=== PATIENT | female | born 1970 | race Caucasian/White ===

== ENCOUNTER 2022-12-15 18:21 | Emergency (ER) | payer OTHER ==
--- OUTSIDE RECORDS SUMMARY | 2022-12-15 18:24 | XMS REPORT | Continuity of Care Document ---
:1970 Author Organization [facility] t Address [address] [facility] [address] [place] [address] Care Team Providers Name Role Phone Misti Ayala Primary Care Physician KB TELLES Attending Clinician Unavailable Therapy, Adc Covid Infusion Attending Clinician Unavailable Kb Telles MD Attending Clinician Margot Fernandez RN Attending Clinician Unavailable Only, Ang Db Test Attending Clinician Unavailable Beatriz Grider MD Attending Clinician BEATRIZ GRIDER Attending Clinician Unavailable Doctor Unassigned, [place] Attending Clinician Unavailable Gloria Love RN Attending Clinician Unavailable Coni Santana Attending Clinician CONI JACKSON Attending Clinician Unavailable HALEY MARTINEZ M.D. Attending Clinician Unavailable ALANNA BRAY NP Attending Clinician Unavailable Payers Payer Name Policy Type Policy Number Effective Date Expiration Date Melly menchaca [employer] [id number] [id number] OUT OF NETWORK 00:00:00 Problems Condition Condition Condition Status Onset Resolution Last Treating Co mments Source Name Details Category Date Date Treatment Clinician Date History of History of Problem Resolve [facility] Complex Complex d [facility] tear of tear of ans medial medial meniscus meniscus of left of left knee as knee as current current injury, injury, initial initial encounter encounter Seasonal Seasonal Problem Active [facility] allergies allergies Phys ici ans Status Status Problem Active [facility] post post Physici medial medial ans meniscus meniscus repair repair Left leg Left leg Problem Active UT swelling swelling Physic i ans Left knee Left knee Problem Active [facility] pain pain Physici ans No known No known Disease Unive rs active active ity of problems problems [facility] Allergies, Adverse Reactions, Alerts Allergy Allergy Status Severity Reaction(s) Onset Inactive Treating Comm ents Source Name Type Date Date Clinician Clindamy Drug Active Itching Univers cherise Allergy 9-10 ity of 00:00: [place] 00 [facility] Levoflox Drug Active Nausea Migraine Univer s acin Allergy and/or 06-25 headache ity of Vomiting 00:00: [place] [facility] Tramadol Drug Active Itching Univers Allergy 9-10 ity of 00:00: [place] 00 [facility] Branch CLINDAMY DRUG Active High Hives Univers CHERISE INGREDI 9-10 ity of 00:00: [place] [facility] LEVOFLOX DRUG Active High N/V Univers ACIN INGREDI 9-10 ity of 00:00: [address] TRAMADOL DRUG Active High Hives Univers INGREDI 9-10 ity of 00:00: [address] clindamy Allergy Active [facility] cherise to drug Physici (finding ans ) Levaquin Allergy Active [facility] to drug Physici (finding ans ) tramadol Allergy Active [facility] to drug Physici (finding ans ) Social History Social Habit Start Date Stop Date Quantity Comments Source Exposure to Not sure [facility] SARS-CoV-2 (event) Medica [facility] [place] Tobacco use and 2021-06-20 2021-06-20 Never used [facility] exposure 00:00:00 00:00:00 [facility] Sex Ass[birth year] [facility] 00:00:00 00:00:00 [facility] Smoking Status Start Date Stop Date Source Never smoker [facility] Medications Ordered Filled Start Stop Current Ordering Indication Dosage Frequency Signature Comments Components Source Medication Medication Date Date Medication? Clinician (SIG) Name Name casirivimab 2020- No 1200mg 1,200 mg, Univers -imdevimab 07-10 Subcutaneo it y of (REGEN-COV 16:45: 04:44 [place], ONCE, [place] (EUA[place] 00 :00 1 dose, On Medical injection [facility] 1,200 mg 07/10/21 at 1145, Routine casirivimab 2020- No [id number] 1200mg 1,200 mg, Univers -imdevimab 07-10 Subcutaneo it y of (REGEN-COV 16:00: 14:48 [place], ONCE, [place] (EUA[place] 00 :00 1 dose, On Medical injection Sat Branch 1,200 mg 07/10/21 at 1100, Routine esomeprazol Yes Univer s e (NEXIUM) 9- ity of 20 mg 15:37: [address] levocetiriz Yes Univer s ine (XYZAL) 9-05 ity of 5 mg tablet 15:37: [address] topiramate Yes Univers (TOPAMAX) 9-05 ity of 50 mg 15:37: [place] tablet [address] [place] [address] esomeprazol Yes Univer s e (NEXIUM) 9-05 ity of 20 mg 15:37: [address] levocetiriz Yes Univer s ine (XYZAL) 9-05 ity of 5 mg tablet 15:37: [address] topiramate Yes Univers (TOPAMAX) 9-05 ity of 50 mg 15:37: [place] tablet [address] [place] [address] esomeprazol Yes Univer s e (NEXIUM) 9-05 ity of 20 mg 15:37: [address] levocetiriz Yes Univer s ine (XYZAL) 9-05 ity of 5 mg tablet 15:37: [address] topiramate Yes Univers (TOPAMAX) -05 ity of 50 mg 15:37: [address] azelastine Yes [id number] 1{spray Use 1 Univers 137 mcg 9-05 } [place] in ity of (0.1 %) 00:00: each [place] nasal spray 00 nostril 2 Med ical (two) Branch times daily. Use in each nostril as directed fluticasone Yes [id number] 1{spray Use 1 Univers propionate 9-05 } [place] in ity o f 50 00:00: each [place] mcg/actuati 00 nostril Medic al on nasal daily. Branch spray bromphenira 0 Yes [id number] 5mL Take 5 mL Univers mine-pseudo 9-05 by mouth 4 it y of ephedrine-D 00:00: (four[place] (BROMFED 00 times Medical DM) 2-30-10 daily as Bran ch mg/5 mL needed for syrup Congestion /Allergies . benzonatate 2020-0 Yes [id number] 200mg Take 2 Univers 100 mg 9-05 capsules [place] of capsule 00:00: [place] mouth 2 [place] (two) Medical times Branch daily as needed for Cough. azelastine 2020-0 Yes [id number] 1{spray Use 1 Univers 137 mcg 9-05 } [place] in ity of (0.1 %) 00:00: each [place] nasal spray 00 nostril 2 Med ical (two) Branch times daily. Use in each nostril as directed fluticasone 2020-0 Yes [id number] 1{spray Use 1 Univers propionate 9-05 } [place] in ity o f 50 00:00: each [place] mcg/actuati 00 nostril Medic al on nasal daily. Branch spray bromphenira 0 Yes [id number] 5mL Take 5 mL Univers mine-pseudo 9-05 by mouth 4 it y of ephedrine-D 00:00: (four[place] (BROMFED 00 times Medical DM) 2-30-10 daily as Bran ch mg/5 mL needed for syrup Congestion /Allergies . benzonatate 0 Yes [id number] 200mg Take 2 Univers 100 mg 9-05 capsules ity of capsule 00:00: [place] mouth 2 [place] (two) Medical times Branch daily as needed for Cough. azelastine 2020-0 Yes [id number] 1{spray Use 1 Univers 137 mcg 9-05 } [place] in ity of (0.1 %) 00:00: each [place] nasal spray 00 nostril 2 Med ical (two) Branch times daily. Use in each nostril as directed fluticasone 2020-0 Yes [id number] 1{spray Use 1 Univers propionate 9-05 } [place] in ity o f 50 00:00: each [place] mcg/actuati 00 nostril Medic al on nasal daily. Branch spray bromphenira 2021-0 Yes [id number] 5mL Take 5 mL Univers mine-pseudo 9-05 by mouth 4 it y of ephedrine-D 00:00: (four[place] (BROMFED 00 times Medical DM) 2-30-10 daily as Bran ch mg/5 mL needed for syrup Congestion /Allergies . benzonatate Yes [id number] 200mg Take 2 Univers 100 mg 9-05 capsules ity of capsule 00:00: [place] mouth 2 [place] 00 (two) Medical times Branch daily as needed for Cough. DULoxetine Yes Univers 20 mg 8-24 ity of capsule 00:00: Medical Branch indapamide Yes Univers 2.5 mg 8-24 ity of tablet 00:00: Medical Branch TRESIBA Yes Univers FLEXTOUCH 8-24 ity of U-100 100 00:00: [place] unit/mL (3 00 Medical mL) InPn Branch metformin Yes Univers ER 500 mg 8-24 ity of 24 hr 00:00: [place] tablet 00 Medical Branch montelukast Yes Univer s 10 mg 8-24 ity of tablet 00:00: Medical Branch DULoxetine Yes Univers 20 mg 8-24 ity of capsule 00:00: Medical Branch indapamide Yes Univers 2.5 mg 8-24 ity of tablet 00:00: Medical Branch TRESIBA Yes Univers FLEXTOUCH 8-24 ity of U-100 100 00:00: [place] unit/mL (3 00 Medical mL) InPn Branch metformin 0 Yes Univers ER 500 mg 8-24 ity of 24 hr 00:00: [place] tablet 00 Medical Branch montelukast Yes Univer s 10 mg 8-24 ity of tablet 00:00: Medical Branch DULoxetine Yes Univers 20 mg 8-24 ity of capsule 00:00: Medical Branch indapamide 0 Yes Univers 2.5 mg 8-24 ity of tablet 00:00: Medical Branch TRESIBA 0 Yes Univers FLEXTOUCH 8-24 ity of U-100 100 00:00: [place] unit/mL (3 00 Medical mL) InPn Branch metformin Yes Univers ER 500 mg 8-24 ity of 24 hr 00:00: [place] tablet 00 Medical Branch montelukast Yes Univer s 10 mg 8-24 ity of tablet 00:00: [place] 00 Medical Branch SYMBICORT Yes Univers 160-4.5 7-10 ity of mcg/actuati 00:00: [place] on inhaler Medical Branch SYMBICORT Yes Univers 160-4.5 7-10 ity of mcg/actuati 00:00: [place] on inhaler Medical Branch SYMBICORT Yes Univers 160-4.5 7-10 ity of mcg/actuati 00:00: [place] on inhaler Medical Branch albuterol Yes Univers 90 7-07 ity of mcg/actuati 00:00: [place] on inhaler Medical Branch albuterol Yes Univers 90 7-07 ity of mcg/actuati 00:00: [place] on inhaler Medical Branch albuterol Yes Univers 90 7-07 ity of mcg/actuati 00:00: [place] on inhaler 00 Medical Branch Diclofenac Diclofenac 2018-10 Yes HALEY APPLY 2 UT Sodium 1 % Sodium 1 % 2- MARTINEZ M.D. GRAMS TO Physici Transdermal Transdermal 00:00: AFFECTED ans Gel Gel 00 AREA FOUR TIMES A DAY NEEDED Acetaminoph Acetaminoph Yes HALEY QD TAKE 1 UT en-Codeine en-Codeine 8-12 MARTINEZ M.D. TABLET Physici #3 300-30 #3 300-30 00:00: DAILY ans MG Oral MG Oral 00 NEEDED FOR Tablet Tablet PAIN. Naproxen Naproxen Yes HALEY Q0.5D TAKE 1 UT 500 MG Oral 500 MG Oral 7- MARTINEZ M.D. TABLET Physici Tablet Tablet 00:00: TWICE ans 00 DAILY NEEDED. Evan Gordon Yes UT 2.5-500 MG 2.5-500 MG Phy sici Oral Tablet Oral Tablet a ns Xyzal TABS Xyzal TABS Yes UT Physici ans Montelukast Montelukast Yes U T Sodium 10 Sodium 10 Physi ci MG Oral MG Oral ans Tablet Tablet NexIUM CPDR NexIUM CPDR Yes U T Physici ans Topamax Topamax Yes UT TABS TABS Physici ans ALPRAZolam ALPRAZolam Yes UT 0.25 MG 0.25 MG Physici Oral Tablet Oral Tablet a ns Vital Signs Vital Name Observation Time Observation Value Comments Source Systolic blood 2021-07-10 15:33:00 142 mm[Hg] Univer sity [facility] Diastolic blood 2021-07-10 15:33:00 90 mm[Hg] [facility] Heart rate 2021-07-10 15:33:00 88 /min [facility] Body temperature 2021-07-10 15:33:00 36.5 Celeste [facility] Res[facility] rate 2021-07-10 15:33:00 20 /min [facility] Body height 2021-07-10 15:33:00 154.9 cm [facility] Body weight 2021-07-10 15:33:00 122.018 kg [facility] BMI 2021-07-10 15:33:00 50.83 kg/m2 [facility] Oxygen saturation in 2021-07-10 15:33:00 96 /min [facility] Arterial blood by [facility] Pulse oximetry Branch Procedures Procedure Date / Time Performed Performing Clinician Giulia e MR Knee wo contrast [id number] 2019-09-16 00:00:00 [facility] US Extremity lower venous 2019-05-08 00:00:00 [facility] Doppler Unilat [id number] Post Op Promis 29 Survey 2019-04-12 00:00:00 [facility] [[facility]] Ortho - Surgery 2019-02-27 00:00:00 [facility] Venancio sicians Scheduling History of Knee Surgery [facility] Plan of Care Planned Activity Planned Date Details Comments Source Diagnostic Test 2019-02-27 00:00:00 [[facility]] Ortho - Surgery [facility] Pending Scheduling [code = [UT[facility]] Ortho - Surgery Scheduling] Encounters Start End Encounter Admission Attending Care Care Encounter Source Date/Time Date/Time Type Type Clinicians Facility Department ID 2021-07-10 2021-07-10 Outpatient Shayla TELLES [facility] [id number] Univers 10:00:00 10:00:00 KB gimenez [facility] 2021-07-10 2021-07-10 Nurse Therapy, Adc Covid Infusion [facility] [id number] Univers 07:41:25 08:41:25 Visit Kb Telles [id number] ity of [id number] [phone] [place] [id number] Branch 2021-07-06 2021-07-06 Letter ALEXANDRE Fernandez [id number] Univers 00:00:00 00:00:00 (Out) Margot ABBOTT [id number] i ty of HOSPITAL [id number] Darius as [id number] [facility] 019 [place] 2021-07-05 2021-07-05 Laboratory Only, Ang Db Test [facility] 1.2.8 40.114 [id number] Univers 14:28:17 14:34:10 Only Beatriz Grider [facility] [id number] ity of [place] [id number] Darius as Vincent?Blea [phone] [address] Medical Office Building 2021-07-05 2021-07-05 Outpatient R NANY [facility] [id number] Univers 14:30:00 14:30:00 BEATRIZ gimenez [facility] 2021-07-05 2021-07-05 Orders Doctor SCHROEDER [id number] Univers 00:00:00 00:00:00 Only Unassigned, SCAR [id number] ity of [place] [facility] [id number] Darius as [phone] [facility] 009 [place] 2021-06-21 2021-06-21 Telephone ALEXANDRE Love [id number] Univers 00:00:00 00:00:00 Gloria ABBOTT [id number] i ty of HOSPITAL [id number] Darius as [id number] [facility] 019 [place] 2021-06-20 2021-06-20 Urgent Beatriz Grider [facility] [id number] Univers 15:12:19 16:06:42 Care Jimmie, Coni [facility] [id number] [place] [id number] Darius as Vincent?Blea [phone] [facility] [address] Medical Office Building 2021-06-20 2021-06-20 Outpatient R JIMMIE [facility] [id number] Univers 15:40:00 15:40:00 CONI gimenez o f [facility] 2019-09-16 2019-09-16 JESSENIA [facility] [id number] [place] 13:15:00 13:15:00 t; HALEY MARTINEZ - [facility] [place] 1 ans M.D. 2019-07-15 2019-07-15 JESSENIA [facility] [id number] [place] 16:00:00 16:00:00 t; HALEY MARTINEZ - [facility] [place] 1 ans M.D. 2019-06-14 2019-06-14 JESSENIA [facility] [id number] [place] 13:45:00 13:45:00 t; HALEY MARTINEZ - [facility] [place] 1 ans M.D. 2019-05-27 2019-05-27 JESSENIA [facility] [id number] [place] 13:00:00 13:00:00 t; WAI MONDRAGON - [facility] Wilda Sims 1 ans WAI MONDRAGON 2019-04-22 2019-04-22 Ninfa MARTINEZ [facility] Orthopedics [id number] [place] 14:15:00 14:15:00 t; HALEY MARTINEZ - [facility] [place] 1 ans M.D. 2019-04-04 2019-04-04 JESSENIA [facility] [id number] [place] 07:30:00 07:30:00 t; HALEY MARTINEZ - [facility] [place] 1 ans M.D. 2019-04-04 2019-04-04 Outpatient [facility] [id number] [facility] 06:20:00 06:20:00 2019-02-04 2019-02-04 Ninfa MARTINEZ [facility] [id number] [place] 15:30:00 15:30:00 t; HALEY MARTINEZ, Orthopedic P zenobia DE LEON M.D. Surgery - [facility] Mat [place]ora Trace 1 Results Test Description Test Time Test Comments Results Result Comments Source Post Op Promis 29 Survey 2019-06-10 09:36:01 Test Item Value Reference Range Interpretation Comme nts Pain Interference: (test code = Pain Interference:) 62.7 1 N Pain Intensity: (test code = Pain Intensity:) 43.8 1 N Physical Function: (test code = Physical Function:) 24.5 1 N Satisfaction Role: (test code = Satisfaction Role:) 31.1 1 N [facility]
--- NOTE | 2022-12-15 19:50 | ER ---
Nurse's Notes [facility] Name: Agnieszka Welsh Age: 52 yrs Sex: Female : 1970 Arrival Date: 12/15/2022 Time: 18:24 Bed IW10 Private MD: Diagnosis: Idiopathic urticaria Presentation: 12/15 19:41 Chief complaint: Patient states: "I am breaking out in a rash and don't know why". vc1 Ebola Screen: Patient negative for fever greater than or equal to 101.5 degrees Fahrenheit, and additional compatible Ebola Virus Disease symptoms Patient denies exposure to infectious person. Patient denies travel to an Ebola-affected area in the 21 days before illness onset. No symptoms or risks identified at this time. Onset: The symptoms/episode began/occurred gradually. Anaphylaxis evaluation, no signs or symptoms of anaphylaxis were noted. Initial Sepsis Screen: Does the patient meet any 2 criteria? No. Patient's initial sepsis screen is negative. Does the patient have a suspected source of infection? No. Patient's initial sepsis screen is negative. Risk Assessment: Do you want to hurt yourself or someone else? Patient reports no desire to harm self or others. Onset of symptoms is unknown. 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 - Social history:: Smoking status: Patient reports the use of cigarette tobacco products, smokes one-half pack cigarettes per day. - Family history:: not pertinent. Vital Signs: 19:41 Pulse 93; Resp 17; Temp 98.3; Pulse Ox 98% ; vc1 19:44 BP 135 / 104; vc1 19:47 Weight 129.27 kg; Height 5 ft. 1 in. (154.94 cm); vc1 19:47 Body Mass Index 53.85 (129.27 kg, 154.94 cm) vc1 ED Course: 18:24 Patient arrived in ED. mr 19:30 Aleksey Bonilla MD is Attending Physician. rt 19:43 Triage completed. vc1 19:44 Arm band placed on left wrist. vc1 Administered Medications: 19:50 Drug: predniSONE 20 mg Route: PO; vc1 19:50 Drug: Pepcid (famotidine) 20 mg Route: PO; vc1 Outcome: 19:50 Discharge ordered by MD. rt 19:53 Discharged to home vc1 19:53 Condition: good 19:53 Discharge instructions given to patient, Instructed on discharge instructions, follow up and referral plans. medication usage, Demonstrated understanding of instructions, follow-up care, medications. 19:53 Demonstrated understanding of Prescriptions given X 2. 19:54 Patient left the ED. vc1 Signatures: Tawnya Farley mr Ila Miguel RN RN vc1 Aleksey Bonilla MD MD rt
--- NOTE | 2022-12-15 19:50 | EDPHYS ---
Physician Documentation [facility] Name: Agnieszka Welsh Age: 52 yrs Sex: Female : 1970 Arrival Date: 12/15/2022 Time: 18:24 Bed IW10 Private MD: ED Physician Aleksey Bonilla HPI: 12/15 21:26 This 52 yrs old Female presents to ER via Ambulatory with complaints of Allergic rt Reaction, Itching. 21:26 Patient presents to the ED with hives starting this afternoon. Patient states that she rt has been itching, using Benadryl to no relief. She has had similar symptoms previously. Denies tongue, lip swelling. She states involves her ears, chest, face, arms. She denies fever, chills, acute complaints. Symptoms are moderate severity, no other aggravating elevating factors.. 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 - Social history:: Smoking status: Patient reports the use of cigarette tobacco products, smokes one-half pack cigarettes per day. - Family history:: not pertinent. ROS: 21:26 Constitutional: Negative for fever, chills, and weight loss, Cardiovascular: Negative rt for chest pain, palpitations, and edema, Respiratory: Negative for shortness of breath, cough, wheezing, and pleuritic chest pain, Abdomen/GI: Negative for abdominal pain, nausea, vomiting, diarrhea, and constipation, Neuro: Negative for headache, weakness, numbness, tingling, and seizure, Psych: Negative for depression, anxiety, suicide ideation, homicidal ideation, and hallucinations. 21:26 Skin: Positive for Hives, itching. Exam: 21:26 Constitutional: This is a well developed, well nourished patient who is awake, alert, rt and in no acute distress. Head/Face: Normocephalic, atraumatic. Chest/axilla: Normal chest wall appearance and motion. Nontender with no deformity. No lesions are appreciated. Cardiovascular: Regular rate and rhythm with a normal S1 and S2. No gallops, murmurs, or rubs. Normal PMI, no JVD. No pulse deficits. Respiratory: Lungs have equal breath sounds bilaterally, clear to auscultation and percussion. No rales, rhonchi or wheezes noted. No increased work of breathing, no retractions or nasal flaring. Abdomen/GI: Soft, non-tender, with normal bowel sounds. No distension or tympany. No guarding or rebound. No evidence of tenderness throughout. 21:26 Skin: Diffuse urticarial rash noted, no cellulitis, no abscess. Vital Signs: 19:41 Pulse 93; Resp 17; Temp 98.3; Pulse Ox 98% ; vc1 19:44 BP 135 / 104; vc1 19:47 Weight 129.27 kg; Height 5 ft. 1 in. (154.94 cm); vc1 19:47 Body Mass Index 53.85 (129.27 kg, 154.94 cm) vc1 MDM: 19:47 Patient medically screened. rt 21:26 Differential diagnosis: SJS, anaphylaxis, hives. Data reviewed: vital signs, nurses rt notes. I considered the following discharge prescriptions or medication management in the emergency department Medications were administered in the Emergency Department. See MAR. Counseling: I had a detailed discussion with the patient and/or guardian regarding: the historical points, exam findings, and any diagnostic results supporting the discharge/admit diagnosis, the need for outpatient follow up, to return to the emergency department if symptoms worsen or persist or if there are any questions or concerns that arise at home. Administered Medications: 19:50 Drug: predniSONE 20 mg Route: PO; vc1 19:50 Drug: Pepcid (famotidine) 20 mg Route: PO; vc1 Disposition Summary: 12/15/22 19:50 Discharge Ordered Location: Home rt Problem: an acute exacerbation rt Symptoms: are unchanged rt Condition: Stable rt Diagnosis - Idiopathic urticaria rt Followup: rt - With: Private Physician - When: 2 - 3 days - Reason: Discharge Instructions: - Discharge Summary Sheet rt - Hives rt Forms: - Medication Reconciliation Form rt - Thank You Letter rt - Antibiotic Education rt - Prescription Opioid Use rt Prescriptions: - EpiPen 2-Tay - inject 1 Syringe by SUBCUTANEOUS route one time; 2 Syringe; Refills: 0, Product rt Selection Permitted - Prednisone 20 mg Oral Tablet - take 1 tablet by ORAL route once daily for 4 days; 4 tablet; Refills: 0, rt Product Selection Permitted Signatures: Ila Miguel RN RN vc1 Aleksey Bonilla MD MD rt
[2022-12-15] MEDS ORDERED: predniSONE 20 MG TAB ONE (19:53)
[2022-12-15] MEDS ORDERED: FAMOTIDINE 20 MG TAB ONE (19:53)
[2022-12-15 20:23] VITALS: TEMP 98.3; O2SAT 98
[2022-12-15 20:32] VITALS: BP 135/104
== END 2022-12-15 19:54 | disposition home or self-care (01) ==
LOC: ER 18:21
DX: L50.1 Idiopathic urticaria (principal); F17.210 Nicotine dependence, cigarettes, uncomplicated; Z88.1 Allergy status to other antibiotic agents
CPT/HCPCS: 99283; J7512

== ENCOUNTER 2024-04-12 01:24 | Emergency (ER) | payer OTHER ==
--- OUTSIDE RECORDS SUMMARY | 2024-04-12 01:27 | XMS REPORT | Continuity of Care Document ---
Author Name Unknown Address [address] [facility] [address] [place] [address] [facility] thconnect Address [address] [facility] [address] [place] [address] Care Team Providers Care Publication Specialist Name Role Phone Misti Ayala Primary Care Physician [phone] KB TELLES Attending Clinician Unavailable Therapy, Adc Covid Infusion Attending Clinician Unavailable Kb Telles MD Attending Clinician [phone] Jim SERNA, Margot Mia Attending Clinician Unavailab No, Ang Db Test Attending Clinician UnavailBeatriz Pat MD Attending Clinician [phone] BEATRIZ GRIDER Attending Clinician Unavailable Doctor Unassigned, [place] Attending Clinician U rios Love RN, Gloria Brock Attending Clinician Unavaila Coni Avendano Attending Clinician [phone] CONI JACKSON Attending Clinician UnavailHALEY Terry M.D. Attending Clinician Unavaila ble ALANNA BRAY NP Attending Clinician Unavaila ble Payers Payer Name Policy Type Policy Number Effective Date Expirati on Date Source [employer] [id number] [id number] 00:00:00 Problems Condition Name Condition Details Condition Category Status Onset Date Resolution Date Last Treatment Date Treating Clinician Comments Source No known active problems No known active problems Disease [facility] History of Complex tear of medial meniscus of left knee as current injury, initial encounter History of Complex tear of medial meniscus of left knee as current injury, initial encounter Problem Resolve d [facility] Seasonal allergies Seasonal allergies Problem Active [facility] Status post medial meniscus repair Status post medial meniscus repair Problem Active [facility] Left leg swelling Left leg swelling Problem Active [facility] Left knee pain Left knee pain Problem Active [facility] Allergies, Adverse Reactions, Alerts Allergy Name Allergy Type Status Severity Reaction(s) Onset Date Inactive Date Treating Clinician Comments Source Clindamy cherise Drug Allergy Active Itching 06-25 00:00: 00 [facility] Levoflox acin Drug Allergy Active Nausea and/or Vomiting 06-25 00:00: 00 Migraine headache [facility] Tramadol Drug Allergy Active Itching 06-25 00:00: 00 [facility] CLINDAMY CHERISE DRUG INGREDI Active High Hives 06-25 00:00: 00 [facility] LEVOFLOX ACIN DRUG INGREDI Active High N/V 06-25 00:00: 00 [facility] TRAMADOL DRUG INGREDI Active High Hives 06-25 00:00: 00 [facility] clindamy cherise Allergy to drug (finding ) Active [facility] Levaquin Allergy to drug (finding ) Active [facility] tramadol Allergy to drug (finding ) Active [facility] Social History Social Habit Start Date Stop Date Quantity Comments Source Exposure to SARS-CoV-2 (event) Not sure [facility] Tobacco use and exposure 2021-06-20 00:00:00 2021-06-20 00:00:00 Never used [facility] Sex Assigned At 1970 00:00:00 1970 00:00:00 [facility] Smoking Status Start Date Stop Date Source Never smoker [facility] Medications Ordered Medication Name Filled Medication Name Start Date Stop Date Current Medication? Ordering Clinician Indication Dosage Frequency Signature (SIG) Comments Components Source casirivimab -imdevimab (REGEN-COV (EUA)) injection 1,200 mg 07-10 16:45: 00 07-11 04:44 :00 No 1200mg 1,200 mg, Subcutaneo us, ONCE, 1 dose, On 07/10/21 at 1145, Routine [facility] casirivimab -imdevimab (REGEN-COV (EUA)) injection 1,200 mg 07-10 16:00: 00 07-10 14:48 :00 No [id number] 1200mg 1,200 mg, Subcutaneo us, ONCE, 1 dose, On 07/10/21 at 1100, Routine [facility] esomeprazol e (NEXIUM) 20 mg capsule 06-20 15:37: 33 Yes [facility] levocetiriz ine (XYZAL) 5 mg tablet 06-20 15:37: 33 Yes [facility] topiramate (TOPAMAX) 50 mg tablet 06-20 15:37: 33 Yes [facility] benzonatate 100 mg capsule 06-20 00:00: 00 Yes [id number] 200mg Take 2 capsules by mouth 2 (two) times daily as needed for Cough. [facility] azelastine 137 mcg (0.1 %) nasal spray 06-20 00:00: 00 Yes [id number] 1{spray } Use 1 [place] in each nostril 2 (two) times daily. Use in each nostril as directed [facility] fluticasone propionate 50 mcg/actuati on nasal spray 06-20 00:00: 00 Yes [id number] 1{spray } Use 1 [place] in each nostril daily. [facility] bromphenira mine-pseudo ephedrine-D M (BROMFED DM) 2-30-10 mg/5 mL syrup 06-20 00:00: 00 Yes [id number] 5mL Take 5 mL by mouth 4 (four) times daily as needed for Congestion /Allergies . [facility] DULoxetine 20 mg capsule 06-08 00:00: 00 Yes [facility] indapamide 2.5 mg tablet 06-08 00:00: 00 Yes [facility] TRESIBA FLEXTOUCH U-100 100 unit/mL (3 mL) InPn 06-08 00:00: [address] [facility] metformin ER 500 mg 24 hr tablet 06-08 00:00: [address] [facility] montelukast 10 mg tablet 06-08 00:00: [address] [facility] SYMBICORT 160-4.5 mcg/actuati on inhaler 04-24 00:00: 00 Yes [facility] albuterol 90 mcg/actuati on inhaler 04-21 00:00: 00 Yes [facility] Diclofenac Sodium 1 % Transdermal Gel Diclofenac Sodium 1 % Transdermal Gel 2018-10 00:00: 00 Yes HALEY MARTINEZ M.D. APPLY 2 GRAMS TO AFFECTED AREA FOUR TIMES A DAY NEEDED [facility] Acetaminoph en-Codeine #3 300-30 MG Oral Tablet Acetaminoph en-Codeine #3 300-30 MG Oral Tablet 05-27 00:00: 00 Yes HALEY MARTINEZ M.D. QD TAKE 1 TABLET DAILY NEEDED FOR PAIN. [facility] Naproxen 500 MG Oral Tablet Naproxen 500 MG Oral Tablet 04-16 00:00: 00 Yes HALEY MARTINEZ M.D. Q0.5D TAKE 1 TABLET TWICE DAILY NEEDED. [facility] Jentadueto 2.5-500 MG Oral Tablet Jentadueto 2.5-500 MG Oral Tablet Yes [facility] Xyzal TABS Xyzal TABS Yes [facility] NexIUM CPDR NexIUM CPDR Yes [facility] Topamax TABS Topamax TABS Yes [facility] ALPRAZolam 0.25 MG Oral Tablet ALPRAZolam 0.25 MG Oral Tablet Yes [facility] Vital Signs Vital Name Observation Time Observation Value Comments S nikolai Systolic blood pressure 2021-07-10 15:33:00 142 mm[Hg] [facility] Diastolic blood pressure 2021-07-10 15:33:00 90 mm[Hg] [facility] Heart rate 2021-07-10 15:33:00 88 /min [facility] Body temperature 2021-07-10 15:33:00 36.5 Celeste [facility] Respiratory rate 2021-07-10 15:33:00 20 /min [facility] Body height 2021-07-10 15:33:00 154.9 cm [facility] Body weight 2021-07-10 15:33:00 122.018 kg [facility] BMI 2021-07-10 15:33:00 50.83 kg/m2 [facility] Oxygen saturation in Arterial blood by Pulse oximetry 2021-07-10 15:33:00 96 /min [place] [facility] Procedures Procedure Date / Time Performed Performing Clinicia n Source MR Knee wo contrast [id number] 2019-09-16 00:00:00 [facility] US Extremity lower venous Doppler Unilat [id number] 2019-05-08 00:00:00 [facility] Post Op Promis 29 Survey 2019-04-12 00:00:00 [facility] [[facility]] Ortho - Surgery Scheduling 2019-02-27 00:00:00 [facility] History of Knee Surgery [facility] Plan of Care Planned Activity Planned Date Details Comments Source Diagnostic Test Pending 2019-02-27 00:00:00 [[facility]] Ortho - Surgery Scheduling [code = [[facility]] Ortho - Surgery Scheduling] [facility] Encounters Start Date/Time End Date/Time Encounter Type Admission Type Attending Clinicians Care Facility Care Department Encounter ID Source 2021-07-10 10:00:00 2021-07-10 10:00:00 Outpatient KB [facility] [id number] [facility] 2021-07-10 07:41:25 2021-07-10 08:41:25 Nurse Visit Therapy, Adc Covid Infusion Kb Telles [facility] 1..114 [id number] [facility] 2021-07-06 00:00:00 2021-07-06 00:00:00 Letter (Out) Margot Fernandez [facility] 1.840.114 [id number] [id number] [facility] 2021-07-05 14:28:17 2021-07-05 14:34:10 Laboratory Only Only, Ang Db Test [facility] [id number] [facility] 2021-07-05 14:30:00 2021-07-05 14:30:00 Outpatient R BEATRIZ GRIDER [facility] [id number] [facility] 2021-07-05 00:00:00 2021-07-05 00:00:00 Orders Only Doctor Unassigned, [place] [facility] [id number] [id number] [facility] 2021-06-21 00:00:00 2021-06-21 00:00:00 Telephone Gloria Love [facility] [id number] [facility] 2021-06-20 15:12:19 2021-06-20 16:06:42 Urgent Care Beatriz Grider [facility] [id number] [facility] 2021-06-20 15:40:00 2021-06-20 15:40:00 Outpatient R CONI JACKSON [facility] [id number] [facility] 2019-09-16 13:15:00 2019-09-16 13:15:00 Appointreece t; HALEY MARTINEZ M.D. HALEY MARTINEZ M.D. [facility] Orthopedics - [place] 1 [id number] [facility] 2019-07-15 16:00:00 2019-07-15 16:00:00 Appointmen t; HALEY MARTINEZ M.D. MAYS, MATTHEW, M.D. [facility] Orthopedics - [place] 1 [id number] [facility] 2019-06-14 13:45:00 2019-06-14 13:45:00 Appointmen t; HALEY MARTINEZ M.D. MAYS, MATTHEW, M.D. [facility] Orthopedics - [place] 1 [id number] [facility] 2019-05-27 13:00:00 2019-05-27 13:00:00 Appointmen t; ALANNA BRAY, ALANNA DELANEY NP [facility] Orthopedics - [place] 1 [id number] [facility] 2019-04-22 14:15:00 2019-04-22 14:15:00 Appointmen t; HALEY MARTINEZ M.D. MAYS, MATTHEW, M.D. [facility] Orthopedics - [place] 1 [id number] [facility] 2019-04-04 07:30:00 2019-04-04 07:30:00 Appointmen t; HALEY MARTINEZ M.D. MAYS, MATTHEW, M.D. [facility] Orthopedics - [place] 1 [id number] [facility] 2019-04-04 06:20:00 2019-04-04 06:20:00 Outpatient [id number] 2019-02-04 15:30:00 2019-02-04 15:30:00 Appointmen t; HALEY MARTINEZ M.D. MAYS, MATTHEW, M.D. [facility] Orthopedic Surgery - [place] [address] 1 [id number] [facility] Results Test Description Test Time Test Comments Results Result Co mments Source [facility]
[2024-04-12 02:13] LABS: Absolute Basophils 0.1 K/uL (0-0.5); Absolute Eosinophils 0.2 K/uL (0-0.5); Absolute Lymphocytes (CBC) 3.6 K/uL (0.7-4.9); Absolute Monocytes 0.7 K/uL (0.1-1.3); Absolute Neutrophil 3.8 K/uL (1.8-8.0); Basophils % 0.9 % (0-1.3); Eosinophils % 2.6 % (0-4.4); Hematocrit 42.2 % (36.0-45.0); Hemoglobin 14.4 g/dL (12.0-15.0); Lymphocytes % 42.8 % (15.3-44.8); MCH 28.8 pg (27.0-35.0); MCHC 34.1 g/dL (32.0-36.0); MCV 84.5 fL (80-100); MPV 8.2 fL (7.6-11.3); Monocytes % 8.7 % (3.3-12.3); Nucleated Red Blood Cells % 0.1 % (0-0); Platelets 281 thou/uL (152-406); Red Cell Distribution Width 14.7 % (12.1-15.2)
[2024-04-12 02:14] LABS: PT Prothrombin Time 9.9 SECONDS (9.4-12.5); Protime INR 0.9
[2024-04-12 02:19] LABS: Specific Gravity 1.024 (1.005-1.030)
[2024-04-12 02:20] LABS: Specific Gravity 1.024 (1.005-1.030); Urine Bacteria <20 /HPF (<20); Urine Bilirubin NEGATIVE (Negative); Urine Blood Negative (Negative); Urine Clarity Extremely Turbid (Clear); Urine Color Light-Yellow (Yellow); Urine Culture Reflex Order REFLEXED; Urine Glucose 4+ (Over) (Negative); Urine Ketones NEGATIVE (Negative); Urine Micro Reflex YN NO BILL MICROSCOPIC; Urine Mucus Slight /HPF (None Seen); Urine Nitrite NEGATIVE (Negative); Urine Protein NEGATIVE (Negative); Urine RBC <5 /HPF (None Seen); Urine Urobilinogen Normal (Normal)
[2024-04-12 02:44] LABS: ALT/SGPT 48 U/L (13-56); AST/SGOT 18 U/L (15-37); Albumin 3.5 g/dL (3.4-5.0); Alkaline Phosphatase 155 U/L (45-117); Anion Gap 10.3 mEq/L (5.0-15.0); BUN Blood Urea Nitrogen 13 mg/dL (7-18); Bicarbonate 25 mEq/L (21-32); Bilirubin Total 0.2 mg/dL (0.2-1.0); Globulin 3.6 g/dL (2.3-3.5); Glomerular Filtration Rate 60 ml/min (=/>90); Glucose Level 344 mg/dL (74-106); NT PRO-BNP 13 pg/mL (<125); Potassium 3.3 mEq/L (3.5-5.1); Protein, Total 7.1 g/dL (6.4-8.2); Sodium Level 136 mEq/L (136-145); Troponin High Sensitivity 16.4 pg/mL (<58.9)
[2024-04-12 02:47] LABS: Bilirubin Direct < 0.2 mg/dL (0-0.2)
[2024-04-12] MEDS ORDERED: METFORMIN HCL 500 MG TAB ONE ×2 (03:00)
[2024-04-12] MEDS ORDERED: NA CHLORIDE 0.9% 1,000 ML ONE (03:06)
[2024-04-12] MEDS ORDERED: POTASSIUM 25 MEQ EFFERV TAB ONE (03:06)
[2024-04-12] MEDS ORDERED: KETOROLAC 30 MG/ML INJ ONE (04:21)
--- NOTE | 2024-04-12 05:58 | ER ---
Nurse's Notes [facility] Name: Agnieszka Welsh Age: 53 yrs Sex: Female : 1970 Arrival Date: 04/12/2024 Time: 01:24 Bed 6 Private MD: Diagnosis: Chest pain, unspecified;Obesity, unspecified;Non ST elevation WI;UTI/ Urinary tract infection, site not specified;Type 2 diabetes mellitus with hyperglycemia;Essential (primary) hypertension;Hypokalemia Presentation: 04/12 01:27 Chief complaint: EMS states: pt arrived to the ED after calling EMS for bilateral jaw kd3 pain with left arm pain. Pt states she was taking out the garbage at her home and the pain began shortly after. PT only has history of diabetes and is a\T\o x4, vss. :29 Coronavirus screen: Vaccine status: Patient reports being unvaccinated. Ebola Screen: kd3 No symptoms or risks identified at this time. Initial Sepsis Screen: Does the patient meet any 2 criteria? No. Patient's initial sepsis screen is negative. Does the patient have a suspected source of infection? No. Patient's initial sepsis screen is negative. Risk Assessment: Do you want to hurt yourself or someone else? Patient reports no desire to harm self or others. Onset of symptoms was April 12, 2024. :29 Method Of Arrival: EMS: [facility] kd3 01:29 Acuity: AN 3 kd3 Triage Assessment: 01:30 General: Appears in no apparent distress. Behavior is calm, cooperative. Pain: kd3 Complains of pain in right jaw, left jaw and left arm. Neuro: Level of Consciousness is awake, alert, obeys commands, Oriented to person, place, time, situation. Cardiovascular: Patient's skin is warm and dry. Respiratory: Airway is patent Trachea midline Respiratory effort is even, unlabored, Respiratory pattern is regular, symmetrical. Historical: - Allergies: 01:30 Levaquin (headache); kd3 01:30 Clindamycin; kd3 01:30 Tramadol HCl; kd3 - PMHx: 01:30 Migraines; Diabetes mellitus; kd3 - Immunization history:: Adult Immunizations up to date. - Infectious Disease History:: Denies. - Social history:: Smoking status: Patient reports the use of cigarette tobacco products, smokes one-half pack cigarettes per day. Screenin:43 [facility] ED Fall Risk Assessment (Adult) History of falling in the last 3 months, kd3 including since admission No falls in past 3 months (0 pts) Confusion or Disorientation No (0 pts) Intoxicated or Sedated No (0 pts) Impaired Gait No (0 pts) Mobility Assist Device Used No (0 pt) Altered Elimination No (0 pt) Score/Fall Risk Level 0 - 2 = Low Risk Oriented to surroundings. Abuse screen: Denies threats or abuse. Denies injuries from another. Nutritional screening: No deficits noted. Tuberculosis screening: No symptoms or risk factors identified. Assessment: 03:39 General: Appears in no apparent distress. Behavior is calm, cooperative. Neuro: Level kd3 of Consciousness is awake, alert, obeys commands, Oriented to person, place, time, situation. Respiratory: Airway is patent Trachea midline Respiratory effort is even, unlabored, Respiratory pattern is regular, symmetrical. 04:33 General: Pt independently ambulatory to the restroom and back. Repeat troponin kd3 complete. Pt placed back on her monitor. Pt reports return in pain of the jaw. Pt administered ketorolac. no further requests at this time. . Cardiovascular: Patient's skin is warm and dry. 06:43 Reassessment: Patient and/or family updated on plan of care and expected duration. Pain kd3 level reassessed. Patient is alert, oriented x 3, equal unlabored respirations, skin warm/dry/pink. Patient states feeling better. 07:33 Reassessment: Report given to admitting nurse at [facility] . aa5 07:35 Reassessment: Patient is alert, oriented x 3, equal unlabored respirations, skin aa5 warm/dry/pink. Pt aware of wait time for transfer, awaiting EMS. . 07:35 Pain: Denies pain. aa5 Vital Signs: 01:29 BP 125 / 80; Pulse 77; Resp 16; Pulse Ox 100% on R/A; kd3 02:17 BP 128 / 82; Pulse 72; Resp 18; Temp 99.8(O); Pulse Ox 97% on R/A; kd3 03:39 BP 117 / 72; Pulse 60; Resp 19; Pulse Ox 99% on R/A; kd3 04:35 BP 140 / 93; Pulse 62; Resp 17; Pulse Ox 97% on R/A; kd3 05:38 Weight 117.93 kg; kd3 06:44 BP 105 / 72; Pulse 59; Resp 18; Pulse Ox 98% on R/A; kd3 07:27 BP 114 / 83; Pulse 66; Resp 18 S; Temp 98.8; Pulse Ox 96% on R/A; aa5 ED Course: 01:27 Patient arrived in ED. kd3 01:28 Peter Reynolds PA is PHCP. cp 01:28 Peter Uribe MD is Attending Physician. cp 01:29 Joann Cowan, KAREEM is Primary Nurse. kd3 01:30 Triage completed. kd3 01:42 No provider procedures requiring assistance completed. Maintain EMS IV. Dressing kd3 intact. Good blood return noted. Site clean \T\ dry. Gauge \T\ site: 22 in the right hand . 01:43 Initial lab(s) drawn, by me, sent to lab. EKG done, by ED staff, reviewed by Peter AUGUSTE. 01:43 Arm band placed on right wrist. EKG completed in triage. Results shown to MD. kd3 02:05 XRAY Chest (1 view) In Process Unspecified. EDMS 02:17 Urinalysis W/Microscopic Sent. kd3 02:17 Test, Urine Sent. kd3 02:17 Patient has correct armband on for positive identification. Provided Education on: pain kd3 medication . 04:27 Troponin HS: redraw at [address] kd3 05:47 CT Chest For PE Angio In Process Unspecified. EDMS 06:21 \T\[address] Uribe. eb 06:30 called [facility] Transfer to check on status of transfer/ per Rhea she is still eb waiting for the doctor to call here back. 06:[address] Luevano the hospitalist telephone switchboard operator for [facility] with Dr. Jordan for patient eb transfer consultation. 06:52 administrative approval given by Rhea Levine Rn/ patient has been accepted to [facility] room 1411/ Dr. Lakeisha Painter has accepted the patient in transfer/ report to be called to [phone]. 07:35 IV 22 G to R AC noted and 20 G to R hand noted, patent, flushed easily. . aa5 07:38 Patient transferred, IV remains in place. aa5 Administered Medications: 02:56 CANCELLED (Physician Discretion): potassiumeffervescent tablet 50 meq PO once; dissolve cp in 4 ounces of water or juice 03:00 Not Given (Physician Discretion): insulin regular human10 units IVP once cp 03:10 Drug: NS 0.9% IV 1000 ml IV at 999 ml/hr Per protocol Route: IV; Rate: 999 ml/hr; Site: [facility] right hand; 05:43 Follow up: Response: No adverse reaction; IV Status: Completed infusion; IV Intake: jw7 1000ml 03:10 Drug: Potassium PO Effervescent Tablet 25 mEq PO once; dissolve in 4 ounces of water or jw7 juice Route: PO; :43 Follow up: Response: No adverse reaction jw7 03:10 Drug: metFORMIN PO 1000 mg PO once Route: PO; jw7 05:44 Follow up: Response: No adverse reaction; No change in condition jw7 04:27 Drug: Ketorolac IVP 15 mg IVP once Route: IVP; Site: right hand; kd3 05:43 Follow up: Response: No adverse reaction; Marked relief of symptoms jw7 05:06 CANCELLED (Physician Discretion): enoxaparin1 mg/kg Sub-Q once cp 06:30 Drug: Clopidogrel PO 300 mg PO once Route: PO; jw7 06:45 Follow up: Response: No adverse reaction kd3 06:30 Drug: Famotidine IVP 20 mg IVP once; dilute with 10 mL 0.9% NaCl; give over 2 minutes jw7 Route: IVP; Site: right antecubital; 06:45 Follow up: Response: No adverse reaction kd3 06:30 Drug: Rocephin IV 1 grams IV at per protocol once; Given slow IV push per pharmacy jw7 instructions Route: IV; Rate: per protocol; Site: right antecubital; :44 Follow up: IV Status: Completed infusion kd3 06:31 Drug: Enoxaparin Sub-Q 1 mg/kg Sub-Q once Route: Sub-Q; Site: abdomen; jw7 06:45 Follow up: Response: No adverse reaction kd3 Medication: 02:17 VIS not applicable for this client. kd3 Intake: 05:43 IV: 1000ml; Total: 1000ml. jw7 Outcome: 02:17 Condition: stable kd3 05:58 ER care complete, transfer ordered by MD. denson 08:22 Patient left the ED. eb Signatures: Dispatcher [employer] EDMS Peter Uribe MD MD cha Calderon, Audri, RN RN aa5 Peter Reynolds, Fabiola Edwards cp, Kyli, RN RN kd3 Carrie Perdue RN RN jw7 Corrections: (The following items were deleted from the chart) 07:38 07:27 BP 114 / 83; Pulse 66bpm; Resp 18bpm; Spontaneous; Pulse Ox 96% RA; aa5 aa5 07:39 07:35 Reassessment: Patient is alert, oriented x 3, equal unlabored respirations, skin aa5 warm/dry/pink. aa5
--- NOTE | 2024-04-12 05:58 | EDPHYS ---
Physician Documentation [facility] Name: Agnieszka Welsh Age: 53 yrs Sex: Female : 1970 Arrival Date: 04/12/2024 Time: 01:24 Bed 6 Private MD: ED Physician Peter Uribe HPI: 04/12 01:40 This 53 yrs old Female presents to ER via EMS with complaints of Jaw Pain, Arm Pain. cp 01:40 bilateral jaw pain and left shoulder pain that radiates down arm. cp 01:40 Onset: The symptoms/episode began/occurred suddenly. cp 01:40 Patient reports she went into house after taking trash out and started having sudden cp onset pain to both side of jaw, left shoulder and arm pain. Patient reports dizziness and shortness of breath. Historical: - Allergies: 01:30 Levaquin (headache); kd3 01:30 Clindamycin; kd3 01:30 Tramadol HCl; kd3 - PMHx: 01:30 Migraines; Diabetes mellitus; kd3 - Immunization history:: Adult Immunizations up to date. - Infectious Disease History:: Denies. - Social history:: Smoking status: Patient reports the use of cigarette tobacco products, smokes one-half pack cigarettes per day. ROS: 01:45 ENT: Positive for jaw pain, cp 01:45 Cardiovascular: Negative for chest pain, cp 01:45 Respiratory: Positive for shortness of breath, 01:45 MS/extremity: Positive for pain, of the left shoulder and left arm, Negative for injury or acute deformity, decreased range of motion, paresthesias, 01:45 Constitutional: Negative for body aches, chills, fever, poor PO intake, cp 01:45 Abdomen/GI: Negative for abdominal pain, vomiting, diarrhea, constipation, cp 01:45 Neuro: Negative for altered mental status, weakness, 01:45 All other systems are negative, Exam: 01:43 ECG was reviewed by the Attending Physician. cp 01:50 Constitutional: The patient appears in no acute distress, alert, awake, cp non-diaphoretic, non-toxic, well developed, well nourished, obese, 01:50 Head/Face: Normocephalic, atraumatic. cp 01:50 Eyes: Periorbital structures: appear normal, Conjunctiva: normal, no exudate, no injection, Sclera: no appreciated abnormality, Lids and lashes: appear normal, bilaterally, 01:50 Neck: ROM/movement: is normal, is supple, without pain, no range of motions limitations, no meningismus, no nuchal rigidity, 01:50 Chest/axilla: Inspection: normal, 01:50 Cardiovascular: Rate: normal, Rhythm: regular, Edema: is not appreciated, JVD: is not appreciated, 01:50 Respiratory: the patient does not display signs of respiratory distress, Respirations: normal, no use of accessory muscles, no retractions, labored breathing, is not present, Breath sounds: are clear throughout, no decreased breath sounds, no stridor, no wheezing, 01:50 Abdomen/GI: Inspection: abdomen appears normal, Palpation: abdomen is soft and non-tender, in all quadrants, 01:50 Back: pain, is absent, ROM is normal, 01:50 Neuro: Orientation: to person, place \T\ time. Mentation: is normal, Motor: moves all fours, strength is normal, Sensation: is normal, 05:07 ECG was reviewed by the Attending Physician. cp Vital Signs: 01:29 BP 125 / 80; Pulse 77; Resp 16; Pulse Ox 100% on R/A; kd3 02:17 BP 128 / 82; Pulse 72; Resp 18; Temp 99.8(O); Pulse Ox 97% on R/A; kd3 03:39 BP 117 / 72; Pulse 60; Resp 19; Pulse Ox 99% on R/A; kd3 04:35 BP 140 / 93; Pulse 62; Resp 17; Pulse Ox 97% on R/A; kd3 05:38 Weight 117.93 kg; kd3 06:44 BP 105 / 72; Pulse 59; Resp 18; Pulse Ox 98% on R/A; kd3 07:27 BP 114 / 83; Pulse 66; Resp 18 S; Temp 98.8; Pulse Ox 96% on R/A; aa5 MDM: 01:29 Patient medically screened. cp 03:00 Differential Diagnosis acute ID, angina, pulmonary embolism, pneumonia, pneumothorax. cp 05:05 Data reviewed: vital signs, nurses notes, lab test result(s), EKG. cp 05:05 Management of patient was discussed with the following: Hospitalist: DR Esquivel who cp requests CT of chest to r/o PE. Independent interpretation of the following test(s) in the Emergency Department EKG: See my EKG interpretation above. Care significantly affected by the following chronic conditions: Diabetes, Obesity. 04/12 01:36 Order name: Basic Metabolic Panel; Complete Time: 02:54 04/12 02:54 Interpretation: Normal except: K 3.3; GLUC 344; CRE 1.11; GFR 60. 04/12 01:36 Order name: CBC with Diff; Complete Time: 02:54 04/12 04:54 Interpretation: Reviewed. 04/12 01:36 Order name: LFT's; Complete Time: 02:54 04/12 01:36 Order name: Magnesium; Complete Time: 02:54 04/12 01:36 Order name: NT PRO-BNP; Complete Time: 02:54 04/12 01:36 Order name: PT-INR; Complete Time: 02:54 04/12 01:36 Order name: Troponin HS; Complete Time: 02:54 04/12 04:48 Interpretation: Reviewed. 04/12 01:36 Order name: Urinalysis W/Microscopic; Complete Time: 02:54 04/12 01:36 Order name: Test, Urine; Complete Time: 02:54 04/12 02:35 Order name: Urine Culture EDKY 04/12 03:39 Order name: Troponin HS: redraw at 0400; Complete Time: 04:50 04/12 05:04 Interpretation: Reviewed. 04/12 05:26 Order name: Glucose, Ancillary Testing; Complete Time: 05:35 [facility] 04/12 01:36 Order name: XRAY Chest (1 view) 04/12 05:06 Order name: CT Chest For PE Angio 04/12 01:36 Order name: EKG; Complete Time: 01:36 04/12 01:36 Order name: Cardiac monitoring; Complete Time: 01:42 04/12 01:36 Order name: EKG - Nurse/Tech; Complete Time: 01:42 04/12 01:36 Order name: IV Saline Lock; Complete Time: 01:42 04/12 01:36 Order name: Labs collected and sent; Complete Time: 01:42 04/12 01:36 Order name: O2 Per Protocol; Complete Time: 01:42 04/12 01:36 Order name: O2 Sat Monitoring; Complete Time: 01:42 cp 04/12 04:56 Order name: Accucheck Blood Glucose; Complete Time: 05:18 cp 04/12 04:56 Order name: EKG - Nurse/Tech; Complete Time: 05:09 cp EC:43 Rate is 71 beats/min. Rhythm is regular. ND interval is normal. QRS interval is normal. cp QT interval is normal. T waves are Inverted in lead aVR. Interpreted by me. Reviewed by me. 05:07 Rate is 62 beats/min. Rhythm is regular. ND interval is normal. QRS interval is normal. cp QT interval is normal. T waves are Inverted in lead aVR. Interpreted by me. Reviewed by me. Administered Medications: 02:56 CANCELLED (Physician Discretion): potassiumeffervescent tablet 50 meq PO once; dissolve cp in 4 ounces of water or juice 03:00 Not Given (Physician Discretion): insulin regular human10 units IVP once cp 03:10 Drug: NS 0.9% IV 1000 ml IV at 999 ml/hr Per protocol Route: IV; Rate: 999 ml/hr; Site: [facility]; 05:43 Follow up: Response: No adverse reaction; IV Status: Completed infusion; IV Intake: jw7 1000ml 03:10 Drug: Potassium PO Effervescent Tablet 25 mEq PO once; dissolve in 4 ounces of water or jw7 juice Route: PO; :43 Follow up: Response: No adverse reaction jw7 03:10 Drug: metFORMIN PO 1000 mg PO once Route: PO; jw7 05:44 Follow up: Response: No adverse reaction; No change in condition jw7 04:27 Drug: Ketorolac IVP 15 mg IVP once Route: IVP; Site: right hand; kd3 05:43 Follow up: Response: No adverse reaction; Marked relief of symptoms jw7 05:06 CANCELLED (Physician Discretion): enoxaparin1 mg/kg Sub-Q once cp 06:30 Drug: Clopidogrel PO 300 mg PO once Route: PO; jw7 06:45 Follow up: Response: No adverse reaction kd3 06:30 Drug: Famotidine IVP 20 mg IVP once; dilute with 10 mL 0.9% NaCl; give over 2 minutes jw7 Route: IVP; Site: right antecubital; 06:45 Follow up: Response: No adverse reaction kd3 06:30 Drug: Rocephin IV 1 grams IV at per protocol once; Given slow IV push per pharmacy jw7 instructions Route: IV; Rate: per protocol; Site: right antecubital; 06:44 Follow up: IV Status: Completed infusion kd3 06:31 Drug: Enoxaparin Sub-Q 1 mg/kg Sub-Q once Route: Sub-Q; Site: abdomen; jw7 06:45 Follow up: Response: No adverse reaction kd3 Disposition Summary: 04/12/24 05:58 Transfer Ordered Notes: Transfer Location: [facility] jarett Reason: Higher level of care jarett Condition: Fair jarett Problem: new jarett Symptoms: have improved jarett Accepting Physician: to [facility](04/12/24 08:22) eb Diagnosis - Chest pain, unspecified jarett - Obesity, unspecified jarett - Non ST elevation ID jarett - UTI/ Urinary tract infection, site not specified jarett - Type 2 diabetes mellitus with hyperglycemia jarett - Essential (primary) hypertension jarett - Hypokalemia jarett Discharge Instructions: - Discharge Summary Sheet kmf Forms: - Medication Reconciliation Form kmf - SBAR form kmf Signatures: Dispatcher [employer] EDPeter Pena MD MD cha Page, Corey, PA PA cp Botello, Elizabeth eb Doucette, Kyli, RN RN kd3 Carrie Perdue RN RN jw7 Corrections: (The following items were deleted from the chart) 01:37 01:36 BASIC METABOLIC PANEL+C.LAB.BRZ ordered. EDMS EDMS 01:37 01:36 CBC+H.LAB.BRZ ordered. EDMS EDMS 01:37 01:36 HEPATIC FUNCTION+C.LAB.BRZ ordered. EDMS EDMS 01:37 01:36 MAGNESIUM+C.LAB.BRZ ordered. EDMS EDMS 01:37 01:36 PROBNP+C.LAB.BRZ ordered. EDMS EDMS 01:37 01:36 PROTIME (+INR)+COAG.LAB.BRZ ordered. EDMS EDMS 01:37 01:36 Troponin High Sensitivity+C.LAB.BRZ ordered. EDMS EDMS 01:37 01:36 Urinalysis W/Microscopic+U.LAB.BRZ ordered. EDMS EDMS 01:37 01:36 Test, Urine+UC.LAB.BRZ ordered. EDMS EDMS 02:56 02:56 Potassium PO Effervescent Tablet 50 mEq PO once; dissolve in 4 ounces of water or cp juice ordered. cp 05:06 05:04 Enoxaparin Sub-Q 1 mg/kg Sub-Q once ordered. cp cp 05:58 05:58 to [facility] jarett 08:22 05:58 to [facility] eb
[2024-04-12] MEDS ORDERED: CEFTRIAXONE 1000 MG/VIAL ONE (06:15)
[2024-04-12] MEDS ORDERED: CLOPIDOGREL 75 MG TABLET ONE (06:15)
[2024-04-12] MEDS ORDERED: ENOXAPARIN 80 MG/0.8 ML SQ ONE (06:15)
[2024-04-12] MEDS ORDERED: ENOXAPARIN 40 MG/0.4 ML SQ ONE (06:16)
[2024-04-12] MEDS ORDERED: NA CHLORIDE 0.9% 50 ML ONE (06:16)
[2024-04-12] MEDS ORDERED: FAMOTIDINE 20 MG/2 ML VIAL IV ONE (06:16)
[2024-04-12 08:33] VITALS: BP 114/83; TEMP 98.8; O2SAT 96
--- NOTE | 2024-04-13 14:08 | EKG ---
Test Date: 2024-04-12 Test Time: 01:35:29 [employer] Worker: RAFAELA MEASUREMENT RESULTS: Intervals: Rate: 71 CO: 172 QRSD: 76 QT: 414 QTc: 449 [place]: P: 5 CO: 172 QRS: 64 T: 54 INTERPRETIVE STATEMENTS: Normal sinus rhythm Normal ECG No previous ECG available for comparison Electronically Signed On 04-13-24 14:06:02 CDT by Margarito Cristina
--- NOTE | 2024-04-14 11:53 | RAD REPORT ---
EXAM DESCRIPTION: CT - Chest For Pe Angio - 04/12/2024 7:09 am CLINICAL HISTORY: The patient is 53 years old and is Female; r/o PE shortness of breath TECHNIQUE: Axial computed tomographic angiography images of the chest with intravenous contrast. S agittal and coronal reformatted images were created and reviewed. This CT exam was performed using one or more of the following dose reduction techniques: automated exposure control, adjustment of t he mA and/or kV according to patient size, and/or use of iterative reconstruction technique. MIP re constructed images were created and reviewed. COMPARISON: No relevant prior studies available. FINDINGS: Pulmonary arteries: No PE identified. Aorta: No acute findings. No thoracic aortic aneurysm. Lungs: Unremarkable. No mass. No consolidation. Pleural space: No pleural effusion or pneumothorax. Heart: No cardiomegaly. No significant pericardial effusion. No evidence of RV dysfunction. Bones/joints: No acute thoracic spine fracture. Multilevel vertebral osteophytes. No acute rib fr acture visualized. No dislocation. Soft tissues: Unremarkable. Lymph nodes: No pathologically enlarged lymph nodes. IMPRESSION: No PE identified. Electronically signed by: Enedelia Jhaveri MD 04/12/2024 06:41 AM CDT ND Due to temporary technical issues with the PACS/Fluency reporting system, reports are being signed by the in house radiologist without review as a courtesy to ensure prompt reporting. The interpreting r adiologist is fully responsible for the content of the report.
--- NOTE | 2024-04-14 12:07 | RAD REPORT ---
EXAM DESCRIPTION: RAD - Chest Single View - 04/12/2024 2:04 am CLINICAL HISTORY: The patient is 53 years old and is Female; SOB TECHNIQUE: Frontal view of the chest. COMPARISON: No relevant prior studies available. FINDINGS: LUNGS: Unremarkable. No consolidation. PLEURAL SPACE: Unremarkable. No pneumothorax. HEART: Unremarkable. No cardiomegaly. MEDIASTINUM: Unremarkable. Normal mediastinal contour. BONES/JOINTS: Unremarkable. No acute fracture. UPPER ABDOMEN: Unremarkable as visualized. IMPRESSION: No acute cardiopulmonary process. Electronically signed by: Dalila Young MD 04/12/2024 02:21 AM CDT RP Due to temporary technical issues with the PACS/Fluency reporting system, reports are being signed by the in house radiologist without review as a courtesy to ensure prompt reporting. The interpreting r adiologist is fully responsible for the content of the report.
--- NOTE | 2024-04-15 14:23 | EKG ---
Test Date: 2024-04-12 Test Time: 05:00:17 Biomedical Specialist: LUISA MEASUREMENT RESULTS: Intervals: Rate: 62 ME: 172 QRSD: 74 QT: 436 QTc: 442 [place]: P: 28 ME: 172 QRS: 74 T: 54 INTERPRETIVE STATEMENTS: Normal sinus rhythm Normal ECG Compared to ECG 04/12/2024 01:35:29 No significant changes Electronically Signed On 04-15-24 14:16:35 CDT by Alessandro Curry
== END 2024-04-12 08:22 | disposition short-term general hospital (02) ==
LOC: ER 01:24
DX: I21.4 Non-ST elevation (NSTEMI) myocardial infarction (principal); N39.0 Urinary tract infection, site not specified; E87.6 Hypokalemia; E11.65 Type 2 diabetes mellitus with hyperglycemia; I10 Essential (primary) hypertension; E66.9 Obesity, unspecified; F17.210 Nicotine dependence, cigarettes, uncomplicated; Z88.1 Allergy status to other antibiotic agents; Z88.5 Allergy status to narcotic agent
CPT/HCPCS: 93005; 87088; 85025; 81001; 87086; 80048; 36415; 83735; 81025; 85610; 82947; 80076; 84484 ×2; 83880; 71275; 71045; 96372; 99284; Q9967; J1650; J7030; J0696